=== PATIENT | female | born 1970 | race Caucasian/White ===

== ENCOUNTER 2024-11-03 08:05 | Outpatient (REF) | payer OTHER, SELFPAY ==
[2024-11-03 14:33] LABS: Hemoglobin 13.8 g/dl (12.0-16.0); Mean Corpuscular HGB Conc 33.7 g/dl (31.0-35.0); Mean Corpuscular Hemoglobin 29.6 pg (27.0-33.0); Platelet Count 241 X10*3/uL (160-400); Red Blood Count 4.66 X10*6/uL (4.20-5.50); Red Cell Distribution Width 12.6 % (11.0-16.0); White Blood Count 6.7 X10*3/uL (4.8-10.8)
[2024-11-03 14:59] LABS: Alanine Aminotransferase 51 U/L (0-31); Albumin Level 4.7 g/dL (3.5-5.0); Alkaline Phosphatase 83 U/L (39-117); Anion Gap 10 (12-20); Aspartate Amino Transferase 39 U/L (5-31); Bilirubin Total 0.5 mg/dL (0.0-1.0); Blood Urea Nitrogen 14 mg/dL (9-16); Calcium 9.5 mg/dL (8.4-10.2); Carbon Dioxide 27 mmol/L (22-29); Chloride 106 mmol/L (96-108); Cholesterol 199 mg/dL (<200); Estimated Glomerular Filt Rate > 60; Glucose Random 95 mg/dL (60-115); HDL Cholesterol 35 mg/dL (>40); LDL Cholesterol Calculated 92 mg/dL (<100); Potassium 4.2 mmol/L (3.3-5.1); Sodium 139 mmol/L (135-145); Total Protein 7.5 g/dL (6.5-8.0); Triglycerides 362 mg/dL (<150)
[2024-11-03 15:46] LABS: Estimated Average Glucose 114 mg/dL; Hemoglobin A1c % 5.6 % (<6.0)
[2024-11-04 07:58] LABS: HBS Num1 101.23 mIU/mL (0-7.99); HBc Num1 0.12 S/CO (0.00-0.79); HBsAGNum1 0.41 S/CO (0.00-0.99); HIV AB/AG Nonreactive (Nonreactive); HIV Num 1 0.05 S/CO (0.00-0.99); Hepatitis B Core Antibody Nonreactive (Nonreactive); Hepatitis B Surface Antigen Negative (Negative); ~Hepatitis B Surface Antibody REACTIVE (Nonreactive); ~Hepatitis C Antibody Nonreactive (Nonreactive)
== END 2024-11-03 08:06 | disposition home or self-care (01) ==
LOC: HO.CHCLDS 08:05
PROVIDERS: Visit Provider Student in an Organized Health Care Education/Training Program
DX: Z00.00 Encounter for general adult medical examination without abnormal findings (principal)
CPT/HCPCS: 36415; 80053; 80061; 82306; 83036; 85027; 86704; 86706; 86803; 87340; 87389

== ENCOUNTER 2024-11-09 14:17 | Outpatient (REF) | payer OTHER, SELFPAY ==
--- OUTSIDE RECORDS SUMMARY | 2024-11-09 16:30 | XMS_ITS | Encounter Summary ---
Author Organization [employer] Address [address] [place] [address] Care Team Providers Care Benefit Director Name Role Phone Rich Marks MD Primary Care Prov ider Encounter Details Date Type Department Care Team (Latest Contact Info) Description 11/09/2024 Travel Social History Tobacco Use Types Packs/Day Years Used Date Smoking Tobacco: Never Smokeless Tobacco: Never Alcohol Use Standard Drinks/Week Comments Yes 0 (1 standard drink = 0.6 oz pur e alcohol) social beer Depression Answer Date Recorded Patient Health Questionnaire-9 Score 0 09/28/2024 Patient Health Questionnaire-9 Score 0 09/28/2024 Last PHQ-9: Questionnaire Data Not on file 0 09/28/2024 Housing Stability Answer Date Recorded What is your housing situation today? I have mamie london 09/28/[address] you li ve. Do you have problems with any of the following? None of the above 09/28/2024 Food Insecurity Answer Date Recorded Within the past 12 months, y ou worried that your food would run out before you got money to buy more: Never True 09/28/2024 Within the past 12 months,th e food you bought just didn't last and you didn't have enough money to get more: Never True 10/2024 Transportation Answer Date Recorded In the past 12 months, has l ack of transportation kept you from medical appts, meetings, work or from getting things needed for daily living? No 09/28/2024 Utilities Answer Date Recorded In the past 12 months, has t he electric, gas, oil or water company threatened to shut off services in your home? No 09/28/2024 Depression Answer Date Recorded Patient Health Questionnaire-2 Score 0 09/28/2024 Internet Access Answer Date Recorded Internet Access Q1 Yes 09/28/2024 Internet Access Q2 Not on file 09/28/2024 Comments No Sex and Gender Information Value Date Recorded Sex Assigned at Female 09/27/2024 4:14 PM EDT Legal Sex Female 3:58 PM EDT Gender Identity Female 09/27/2024 4:14 PM EDT Sexual Orientation Straight 11/02/2024 11 :07 AM EDT documented as of this encounter Plan of Treatment Not on file documented as of this encounter Visit Diagnoses Not on filedocumented in this encounter Additional Health Concerns Assessment Noted Time PHQ-9 Depression Total Score: 0 09/29/19 2:40 PM EDT documented as of this encounter Care Teams Benefit Director Relationship Specialty Start Date End Date Rich Marks MD [address] [place] [id number] PCP - General Internal Medicine 09/29/24 documented as of this encounter
[2024-11-15 09:48] LABS: HPV Genotype 16 Negative (Negative); HPV Genotype 18 Negative (Negative); HPV High Risk Negative (Negative)
== END 2024-11-09 14:18 | disposition home or self-care (01) ==
LOC: HO.CHCLNP 14:17
PROVIDERS: Visit Provider Family Medicine
DX: Z12.4 Encounter for screening for malignant neoplasm of cervix (principal)
CPT/HCPCS: 87626; 88175

== ENCOUNTER 2024-11-16 09:34 | Outpatient (REF) | payer OTHER, SELFPAY ==
--- OUTSIDE RECORDS SUMMARY | 2024-11-16 10:19 | XMS_ITS | Encounter Summary ---
Author Organization [employer] Address [address] [place] [address] Care Team Providers Care Credit Correspondence Clerk Name Role Phone Rich Marks MD Primary Care Prov ider Reason for Visit * Reason Onset Date Comments Appointment Request 10/27/2024 Encounter Details Date Type Department Care Team ([facility] st Contact Info) Description 10/27/2024 Telephone [facility] MEDICINE [address] [place] [address] Rich Marks MD [address] [place] [address] Appointment Request Social History Tobacco Use Types Packs/Day Years [...] Access Q2 Not on file 09/28/2024 Comments Unknown Sex and Gender Information Value Date Recorded Sex Assigned at Female 09/27/2024 4:14 PM EDT Legal Sex Female 3:58 PM EDT Gender Identity Female 09/27/2024 4:14 PM EDT Sexual Orientation Straight 11/02/2024 11 :07 AM EDT documented as of this encounter Miscellaneous Notes * Telephone Encounter - Kaia Lisa - 10/27/2024 9:13 AM EDT Tc from pt requesting to reschedule appt from 10/12/24 Contact pt at [phone] documented in this encounter Plan of Treatment Upcoming Encounters Date Type Department Care Team (Late st Contact Info) Description 01/05/2025 3:00 PM EDT Telemedicine [facility] PEDS [address] [place] [address] Rich Marks MD [address] [place] [address] documented as of this encounter Visit Diagnoses Not on filedocumented in this encounter Additional Health Concerns Assessment Noted Time PHQ-9 Depression Total Score: 0 09/29/19 2:40 PM EDT documented as of this encounter Care Teams Credit Correspondence Clerk Relationship Specialty Start Date End Date Rich Marks MD [address] [place] [address] PCP - General Internal Medicine 09/29/24 documented as of this encounter
[2024-11-16 14:50] LABS: TSH reflex Free T4 1.44 uIU/mL (0.32-4.0)
[2024-11-17 08:28] LABS: Syphilis Screen Nonreactive (Nonreactive)
[2024-11-18 19:54] LABS: TS Negative Control Passed; TS Panel A 5; TS Panel B 21; TS Positive Control Passed; TSpotTB Positive (Negative)
== END 2024-11-16 09:35 | disposition home or self-care (01) ==
LOC: HO.CHCLDS 09:34
PROVIDERS: Visit Provider Student in an Organized Health Care Education/Training Program
DX: Z00.00 Encounter for general adult medical examination without abnormal findings (principal)
CPT/HCPCS: 36415; 84443; 86481; 86780

== ENCOUNTER 2024-11-18 14:51 | Outpatient (REF) | payer OTHER, SELFPAY ==
--- OUTSIDE RECORDS SUMMARY | 2024-11-18 18:02 | XMS_ITS | Encounter Summary ---
Author Organization [employer] Address [address] [place] [address] Care Team Providers Care Pump Machine Operator Name Role Phone Rich Marks MD Primary Care Prov ider Reason for Visit * Reason Onset Date Comments Appointment Request 10/27/2024 Encounter Details Date Type Department Care Team ([facility] st Contact Info) Description 10/27/2024 Telephone [facility] MEDICINE [address] [place] [address] Rich Marks MD [address] [place] [address] Appointment Request Social History Tobacco Use Types [...] reschedule appt from 10/12/24 Contact pt at [phone] documented in this encounter Plan of Treatment Upcoming Encounters Date Type Department Care Team (Late st Contact Info) Description 01/05/2025 3:00 PM EDT Telemedicine [facility] P[facility]S [address] [place] [address] Rich Marks MD [address] [place] [address] documented as of this encounter Visit Diagnoses Not on filedocumented in this encounter Additional Health Concerns Assessment Noted Time PHQ-9 Depression Total Score: 0 09/29/19 2:40 PM EDT documented as of this encounter Care Teams Pump Machine Operator Relationship Specialty Start Date End Date Rich Marks MD [address] [place] [address] PCP - General Internal Medicine 09/29/24 documented as of this encounter
== END 2024-11-18 14:52 | disposition home or self-care (01) ==
LOC: HO.MAMMO 14:51
PROVIDERS: PCP Internal Medicine; Visit Provider Internal Medicine
DX: Z12.31 Encounter for screening mammogram for malignant neoplasm of breast (principal)
CPT/HCPCS: 77063; 77067

== ENCOUNTER → 2024-11-18 15:30 | Outpatient (BNV) | payer OTHER, SELFPAY | PROVIDERS: PCP Internal Medicine; Visit Provider Internal Medicine | DX: Z12.31 Encounter for screening mammogram for malignant neoplasm of breast (principal) | CPT/HCPCS: 77063; 77067 ==

== ENCOUNTER 2024-11-23 09:19 | Outpatient (REF) | payer OTHER, SELFPAY ==
--- NOTE | ~2024-11-23 | XR_ITS ---
EXAMINATION: XR CHEST CLINICAL INFORMATION: positive T-spot test,asymptomatic COMPARISON: None available. TECHNIQUE: 2 views of the chest were obtained. FINDINGS: No consolidation, pleural effusion or pneumothorax. No hyperinflation. Cardiomediastinal silhouette size is normal. Mild multilevel thoracic and upper lumbar stenosis. Degenerative changes in the left glenohumeral joint. Mild S-shaped curvature of the thoracolumbar spine. Patient's large body habitus. XR/XR chest 2V IMPRESSION: No acute airspace disease. Mild spondylosis and scoliosis, thoracolumbar spine. Electronically signed by: Jeremiah Yen MD 11/23/2024 10:02 AM EDT
--- OUTSIDE RECORDS SUMMARY | 2024-11-23 09:57 | XMS_ITS | Encounter Summary ---
Author Organization [employer] Address [address] [facility] [place] [address] Care Team Providers Care Schedule Manager Name Role Phone Rich Marks MD Primary Care Prov ider Reason for Visit * Reason Onset Date Comments Appointment Request 10/27/2024 Encounter Details Date Type Department Care Team ([facility] st Contact Info) Description 10/27/2024 Telephone [facility] MEDICINE [address] [place] [address] Rich Marks MD [address] [place] [address] Appointment Request Social History Tobacco Use Types [...] reschedule appt from 10/12/24 Contact pt at [phone] documented in this encounter Plan of Treatment Upcoming Encounters Date Type Department Care Team (Late st Contact Info) Description 01/05/2025 3:00 PM EDT Telemedicine [facility] MED & PEDS [address] [place] [address] Rich Marks MD [address] [place] [address] documented as of this encounter Visit Diagnoses Not on filedocumented in this encounter Additional Health Concerns Assessment Noted Time PHQ-9 Depression Total Score: 0 09/29/19 2:40 PM EDT documented as of this encounter Care Teams Schedule Manager Relationship Specialty Start Date End Date Rich Marks MD [address] [place] [address] PCP - General Internal Medicine 09/29/24 documented as of this encounter
== END 2024-11-23 09:20 | disposition home or self-care (01) ==
LOC: HO.XRAY 09:19
PROVIDERS: PCP Internal Medicine; Visit Provider Student in an Organized Health Care Education/Training Program
DX: R76.12 Nonspecific reaction to cell mediated immunity measurement of gamma interferon antigen response without active tuberculosis (principal)
CPT/HCPCS: 71046

== ENCOUNTER → 2024-11-23 09:26 | Outpatient (BNV) | payer OTHER, SELFPAY | PROVIDERS: PCP Internal Medicine; Visit Provider Radiology Diagnostic Radiology | DX: R76.11 Nonspecific reaction to tuberculin skin test without active tuberculosis (principal) | CPT/HCPCS: 71046 ==

== ENCOUNTER 2024-12-03 16:43 | Outpatient (REF) | payer OTHER, SELFPAY ==
--- OUTSIDE RECORDS SUMMARY | 2024-12-03 16:45 | XMS_ITS | Encounter Summary ---
Author Organization [employer] Address [address] [facility] [address] [place] [address] Care Team Providers Care Ropewalk Rope Maker Name Role Phone Rich Marks MD Primary Care Prov ider Reason for Visit * Reason Onset Date Comments Appointment Request 10/27/2024 Encounter Details Date Type Department Care Team (Late st Contact Info) Description 10/27/2024 Telephone [facility] MEDICINE [address] [place] [address] Rich Marks MD [address] [place], [place] [id number] Appointment Request Social History Tobacco Use Types [...] reschedule appt from 10/12/24 Contact pt at [phone] documented in this encounter Plan of Treatment Upcoming Encounters Date Type Department Care Team (Late st Contact Info) Description 01/05/2025 3:00 PM EDT Telemedicine [facility] MED [facility] PEDS [address] [place] [address] Rich Marks MD [address] [place] [address] documented as of this encounter Visit Diagnoses Not on filedocumented in this encounter Additional Health Concerns Assessment Noted Time PHQ-9 Depression Total Score: 0 09/29/19 2:40 PM EDT documented as of this encounter Care Teams Ropewalk Rope Maker Relationship Specialty Start Date End Date Rich Marks MD [address] [place] [address] PCP - General Internal Medicine 09/29/24 documented as of this encounter
[2024-12-04 03:12] LABS: CT PCR Urine NOT DETECTED (Not Detect.); NG PCR Urine NOT DETECTED (Not Detect.)
== END 2024-12-03 16:44 | disposition home or self-care (01) ==
LOC: HO.HHCLNP 16:43
PROVIDERS: Visit Provider Student in an Organized Health Care Education/Training Program
DX: Z00.00 Encounter for general adult medical examination without abnormal findings (principal)
CPT/HCPCS: 36415; 87491; 87591